=== PATIENT | male | born 1975 | race Caucasian/White ===

== ENCOUNTER → 2016-10-26 | Outpatient (CLI) | payer OTHER ==
[2016-10-26 12:32] LABS: BASO % 0.2 %; BASO ABS # 0.01 K/uL (0-0.2); COMPLETE YES; EOS % 0.8 %; HEMATOCRIT 45.9 % (42-52); IG% 0.2 %; LYMPH % 27.8 %; LYMPH ABS # 1.36 K/uL (1.2-3.4); MEAN CELL VOLUME 85.3 fL (80-100); MEAN CORPUSCULAR HEMOGLOBIN 28.3 pg (25-34); MEAN CORPUSCULAR HGB CONC 33.1 g/dl (32-36); MONO % 9.2 %; NEUT % 61.8 %; PLATELET COUNT 250 K/uL (130-400); RED BLOOD COUNT 5.38 M/uL (4.7-6.1)
[2016-10-26 13:35] LABS: LYME DISEASE AB IGG NEG (NEG)
[2016-10-26 13:38] LABS: LYME DISEASE AB IGM NEG (NEG)
[2016-10-26 14:38] LABS: CALCIUM 9.2 mg/dl (8.5-10.1)
[2016-10-26 14:39] LABS: BLOOD UREA NITROGEN 13 mg/dl (7-18); CARBON DIOXIDE 25 mmol/L (21-32); CHLORIDE 105 mmol/L (98-107); CREATININE 0.99 mg/dl (0.60-1.40); GLUCOSE 96 mg/dl (70-99); SODIUM 140 mmol/L (136-145)
== END | disposition home or self-care (01) ==
LOC: C.LABBFT 08:04
PROVIDERS: ATTEND Nurse Practitioner
DX: R53.83 Other fatigue (principal)

== ENCOUNTER → 2017-12-13 | Outpatient (CLI) | payer OTHER | END | disposition home or self-care (01) | LOC: C.PATHSPEC 17:48 | PROVIDERS: ATTEND Urology | DX: Z30.2 Encounter for sterilization (principal) ==